=== PATIENT | female | born 1955 | race Caucasian/White ===

== ENCOUNTER 2019-04-18 08:29 | Day surgery (SDC) | payer OTHER ==
[2019-04-14 11:55] LABS: Basophils # (auto) 0.1 uL; Basophils % (auto) 0.6 % (0.0-2.0); Eosinophils # (auto) 0.2 uL; Eosinophils % (auto) 2.2 % (0.0-7.0); Hematocrit 43.6 % (36.0-46.0); Hemoglobin 14.3 g/dL (12.2-16.2); Lymphocytes # (auto) 1.1 uL; Lymphocytes % (auto) 11.2 % (10.0-50.0); Mean Corpuscular Hemoglobin 29.9 pg (28.0-32.0); Mean Corpuscular Hgb Conc. 32.9 g/dL (32.0-36.0); Monocytes # (auto) 0.5 uL; Monocytes % (auto) 5.2 % (0.0-12.0); Neutrophils % (auto) 80.8 % (37.0-80.0); Nucleated Red Blood Cells % 0.1 %; Platelet Count (auto) 216 10^3/uL (140-450); Red Blood Cells 4.79 10^6/uL (4.0-5.20); Red Cell Distribution Width 14.3 % (11.8-14.3)
[2019-04-14 12:46] LABS: Partial Thromboplastin Time 28.4 sec (23.64-32.05)
[2019-04-14 14:15] LABS: INR 0.93 (0.9-1.15)
[~2019-04-18] VITALS: Ht 170.2 cm; Wt 65.8 kg
[2019-04-18] MEDS ORDERED: SODIUM CHLORIDE LOCK 10 ML ONE (09:29)
[2019-04-18] MEDS ORDERED: diphenhdrAMINE HCL 50 MG/1 ML VL ONE (09:30)
[2019-04-18] MEDS ORDERED: LIDOCAINE VISCOUS 2% 15ML UD ONE (09:30)
[2019-04-18] MEDS: fentaNYL CITRATE 100 MCG/2 ML VL ONE ×3 (09:35→09:46)
[2019-04-18] MEDS: MIDAZOLAM HCL 5 MG/ML-1ML VIAL ONE ×3 (09:35→09:46)
[2019-04-18 10:32] VITALS: BP 137/87
== END 2019-04-18 10:38 | disposition home or self-care (01) ==
LOC: GI 08:29
PROVIDERS: ATTEND Internal Medicine Gastroenterology
DX: Z12.11 Encounter for screening for malignant neoplasm of colon (principal); K63.89 Other specified diseases of intestine; K29.50 Unspecified chronic gastritis without bleeding; K22.8 Other specified diseases of esophagus; Z98.890 Other specified postprocedural states; Z87.891 Personal history of nicotine dependence; Z85.038 Personal history of other malignant neoplasm of large intestine; Z80.0 Family history of malignant neoplasm of digestive organs; Z78.0 Asymptomatic menopausal state
CPT/HCPCS: 36415; 43239; 43450; 45380; 85025; 85610; 85730; 88305; 88342; J1200; J2250; J3010; J7030; 99152; 99153

== ENCOUNTER → 2019-09-28 | Outpatient (CLI) | payer OTHER ==
[2019-09-29 05:06] LABS: RPR Non Reactive (Non Reactive)
== END | disposition home or self-care (01) ==
LOC: LAB 14:29
DX: H57.89 Other specified disorders of eye and adnexa (principal)
CPT/HCPCS: 86592